=== PATIENT | male | born 1970 | race Caucasian/White ===

== ENCOUNTER 2018-09-05 05:36 | Inpatient (IN) | payer OTHER ==
[2018-09-05] MEDS ORDERED: VERAPAMIL 5 MG INJ (06:11)
[2018-09-05] MEDS ORDERED: NITROGLYCERIN (IC) 100 MCG/ML INJ (06:14)
[2018-09-05] MEDS: THROMBIN (BOVINE) 5,000 UNIT VIAL TP (06:55)
[2018-09-05] MEDS: CEFAZOLIN 1 GM INJ (06:55)
[2018-09-05] MEDS: GELATIN SIZE 100 SPONGE (06:55)
[2018-09-05] MEDS: BUPIVACAINE 0.5%/EPI (SDV) 30 ML INJ ×2 (06:55→10:53)
[2018-09-05] MEDS ORDERED: HEPARIN 1000 UNITS/ML 10 ML INJ (06:56)
[2018-09-05] MEDS ORDERED: PROPOFOL 200 MG INJ (07:00)
[2018-09-05] MEDS ORDERED: MIDAZOLAM 1 MG/ML 2 ML INJ (07:26)
[2018-09-05] MEDS ORDERED: ONDANSETRON 4 MG INJ (07:26)
[2018-09-05] MEDS ORDERED: METOCLOPRAMIDE 10 MG INJ (07:26)
[2018-09-05] MEDS ORDERED: ROCURONIUM 50 MG INJ ×2 (07:26→08:15)
[2018-09-05] MEDS ORDERED: PROPOFOL 20 ML (07:26)
[2018-09-05] MEDS ORDERED: DIPHENHYDRAMINE 50 MG INJ IV (07:30)
[2018-09-05] MEDS ORDERED: HYDROmorphONE 1 MG/5 ML IV SYRINGE IV ×5 (07:30→13:30)
[2018-09-05] MEDS ORDERED: MEPERIDINE 25 MG INJ IV (07:30)
[2018-09-05] MEDS ORDERED: FENTAnyl 50 MCG/ML VIAL IV ×2 (07:30)
[2018-09-05] MEDS ORDERED: FENTAnyl 50 MCG/ML VIAL ×2 (07:33→11:00)
[2018-09-05] MEDS ORDERED: DEXAMETHASONE 4 MG/ML 5 ML INJ (07:46)
[2018-09-05] MEDS ORDERED: CEFAZOLIN 1 GM INJ (08:02)
[2018-09-05] MEDS ORDERED: HYDROmorphONE 2 MG/ML SYG (08:28)
[2018-09-05] MEDS ORDERED: ROPIVACAINE 0.5 % 30 ML VIAL (09:33)
[2018-09-05] MEDS ORDERED: SUCCINYLCHOLINE CHLORIDE 100 MG/5 ML SYG IV (12:45)
[2018-09-05] MEDS ORDERED: NALOXONE (0.4 MG/ML) INJ IV (13:00)
[2018-09-05] MEDS ORDERED: HYDROCODONE/APAP (5/325) TAB PO (13:00)
[2018-09-05] MEDS ORDERED: ONDANSETRON 4 MG INJ IV ×2 (13:00→13:30)
[2018-09-05] MEDS ORDERED: ACETAMINOPHEN 325 MG TAB PO (13:00)
[2018-09-05] MEDS ORDERED: PROCHLORPERAZINE 10 MG TAB PO (13:00)
[2018-09-05] MEDS ORDERED: NACL 0.9% 3 ML SYG IV (13:00)
[2018-09-05] MEDS ORDERED: AL HYDROX/MG HYDROX/SIMETH 30 ML CUP PO (13:00)
[2018-09-05] MEDS: FENTAnyl 50 MCG/ML VIAL IV (13:10)
[2018-09-05] MEDS: ONDANSETRON 4 MG INJ IV (13:10)
[2018-09-05] MEDS: HYDROmorphONE 0.2 MG/ML PCA IV ×2 (13:18→19:45)
[2018-09-05] MEDS ORDERED: KETOROLAC 15 MG INJ IV (13:30)
[2018-09-05] MEDS: CEFAZOLIN 1 GM/50 ML (PMX) 50 ML IVPB ×2 (17:53→23:48)
[2018-09-05] MEDS ORDERED: ZOLPIDEM 5 MG TAB PO (18:30)
[2018-09-05] MEDS ORDERED: ACET/BUTAL/CAFF TAB PO (18:30)
[2018-09-05] MEDS ORDERED: SUMATRIPTAN 50 MG TAB PO (18:30)
[2018-09-05] MEDS: MIRTAZAPINE 15 MG TAB PO (20:53)
[2018-09-05] MEDS: traZODone 50 MG TAB PO (20:53)
[2018-09-06] MEDS: CEFAZOLIN 1 GM/50 ML (PMX) 50 ML IVPB ×2 (05:21→11:49)
[2018-09-06 05:25] LABS: HEMATOCRIT 36.9 % (42.0-52.0)
[2018-09-06 06:01] LABS: ANION GAP 8 (5-13); BLOOD UREA NITROGEN 13 mg/dl (7-20); CALCIUM 9.3 mg/dl (8.4-10.2); CARBON DIOXIDE 30 mmol/L (21-31); CHLORIDE 103 mmol/L (97-110); CREATININE 0.85 mg/dl (0.61-1.24); Estimated GFR > 60 mL/min (>60); GLUCOSE 128 mg/dl (70-220); POTASSIUM 4.4 mmol/L (3.5-5.1); SODIUM 141 mmol/L (135-144)
[2018-09-06] MEDS: HYDROmorphONE 0.2 MG/ML PCA IV (06:12)
[2018-09-06] MEDS: DOCUSATE SODIUM 100 MG CAP PO ×2 (08:21→20:43)
[2018-09-06] MEDS: DULOXETINE 30 MG CAP DR PO (08:21)
[2018-09-06] MEDS: HYDROCODONE/APAP (5/325) TAB PO ×3 (13:13→22:05)
[2018-09-06] MEDS: HYDROmorphONE 0.5 MG/0.5 ML SYG IV ×2 (18:47→23:44)
[2018-09-06] MEDS: traZODone 50 MG TAB PO (20:43)
[2018-09-06] MEDS: MIRTAZAPINE 15 MG TAB PO (20:43)
[2018-09-07] MEDS: HYDROCODONE/APAP (5/325) TAB PO ×5 (02:13→18:42)
[2018-09-07 04:59] LABS: ADD MAN DIFF? NO
[2018-09-07 05:02] LABS: BASOPHILS % 0.4 % (0.0-2.0); EOSINOPHILS % 0.4 % (0.0-7.0); HEMATOCRIT 37.1 % (42.0-52.0); HEMOGLOBIN 11.9 g/dl (14.0-18.0); LYMPHOCYTES # 2.1 10^3/ul (0.8-2.9); LYMPHOCYTES % 25.3 % (15.0-51.0); MEAN CORPUSCULAR HEMOGLOBIN 27.5 pg (29.0-33.0); MEAN CORPUSCULAR HGB CONC 32.1 g/dl (32.0-37.0); MEAN CORPUSCULAR VOLUME 85.9 fl (82.0-101.0); MEAN PLATELET VOLUME 9.8 fl (7.4-10.4); MONOCYTE # 0.8 10^3/ul (0.3-0.9); MONOCYTES % 9.9 % (0.0-11.0); NEUTROPHIL # 5.2 10^3/ul (1.6-7.5); NEUTROPHILS % 63.8 % (39.0-77.0); PLATELET COUNT 308 10^3/UL (140-415); RED BLOOD COUNT 4.32 10^6/ul (4.70-6.10); RED CELL DISTRIBUTION WIDTH 14.6 % (11.5-14.5)
[2018-09-07 05:02] LABS: WHITE BLOOD COUNT 8.2 10^3/ul (4.8-10.8)
[2018-09-07 05:18] LABS: ANION GAP 7 (5-13); BLOOD UREA NITROGEN 13 mg/dl (7-20); CALCIUM 8.8 mg/dl (8.4-10.2); CARBON DIOXIDE 33 mmol/L (21-31); CHLORIDE 99 mmol/L (97-110); CREATININE 0.97 mg/dl (0.61-1.24); Estimated GFR > 60 mL/min (>60); GLUCOSE 112 mg/dl (70-220); MAGNESIUM 1.7 mg/dl (1.7-2.5); PHOSPHORUS 3.7 mg/dl (2.5-4.9); POTASSIUM 4.3 mmol/L (3.5-5.1); SODIUM 139 mmol/L (135-144)
[2018-09-07] MEDS: HYDROmorphONE 0.5 MG/0.5 ML SYG IV ×3 (07:50→21:05)
[2018-09-07] MEDS: DULOXETINE 30 MG CAP DR PO (09:27)
[2018-09-07] MEDS: DOCUSATE SODIUM 100 MG CAP PO ×2 (09:28→21:07)
[2018-09-07] MEDS: traZODone 50 MG TAB PO (21:07)
[2018-09-07] MEDS: MIRTAZAPINE 15 MG TAB PO (21:08)
[2018-09-08] MEDS: HYDROCODONE/APAP (5/325) TAB PO ×3 (00:40→09:31)
[2018-09-08 05:01] LABS: ADD MAN DIFF? NO
[2018-09-08 05:06] LABS: WHITE BLOOD COUNT 8.4 10^3/ul (4.8-10.8)
[2018-09-08 05:06] LABS: BASOPHILS % 0.5 % (0.0-2.0); EOSINOPHILS # 0.1 10^3/ul (0.0-0.5); EOSINOPHILS % 1.4 % (0.0-7.0); HEMATOCRIT 37.7 % (42.0-52.0); HEMOGLOBIN 11.9 g/dl (14.0-18.0); LYMPHOCYTES # 2.7 10^3/ul (0.8-2.9); LYMPHOCYTES % 31.8 % (15.0-51.0); MEAN CORPUSCULAR HGB CONC 31.6 g/dl (32.0-37.0); MEAN CORPUSCULAR VOLUME 85.7 fl (82.0-101.0); MONOCYTE # 0.8 10^3/ul (0.3-0.9); MONOCYTES % 9.3 % (0.0-11.0); NEUTROPHIL # 4.8 10^3/ul (1.6-7.5); NEUTROPHILS % 56.6 % (39.0-77.0); PLATELET COUNT 331 10^3/UL (140-415); RED CELL DISTRIBUTION WIDTH 14.3 % (11.5-14.5)
[2018-09-08 05:24] LABS: ANION GAP 6 (5-13); BLOOD UREA NITROGEN 10 mg/dl (7-20); CALCIUM 8.8 mg/dl (8.4-10.2); CARBON DIOXIDE 33 mmol/L (21-31); CHLORIDE 102 mmol/L (97-110); CREATININE 0.86 mg/dl (0.61-1.24); Estimated GFR > 60 mL/min (>60); GLUCOSE 113 mg/dl (70-220); PHOSPHORUS 3.7 mg/dl (2.5-4.9); SODIUM 141 mmol/L (135-144)
[2018-09-08] MEDS: DOCUSATE SODIUM 100 MG CAP PO (08:26)
[2018-09-08] MEDS: DULOXETINE 30 MG CAP DR PO (08:26)
== END 2018-09-08 13:21 | disposition home or self-care (01) | DRG 454 ==
LOC: REC 05:36 → MS1 09-07 08:02
PROC: 0SG30A0 Fusion of Lumbosacral Joint with Interbody Fusion Device, Anterior Approach, Anterior Column, Open Approach (ICD-10-PCS; principal; 2018-09-05 07:27)
PROC: 0SG30K1 Fusion of Lumbosacral Joint with Nonautologous Tissue Substitute, Posterior Approach, Posterior Column, Open Approach (ICD-10-PCS; 2018-09-05 07:27)
PROC: 0SB40ZZ Excision of Lumbosacral Disc, Open Approach (ICD-10-PCS; 2018-09-05 07:27)
PROC: 3E0U0GB Introduction of Recombinant Bone Morphogenetic Protein into Joints, Open Approach (ICD-10-PCS; 2018-09-05 07:27)
PROC: 4A11X4G Monitoring of Peripheral Nervous Electrical Activity, Intraoperative, External Approach (ICD-10-PCS; 2018-09-05 07:27)
DX: M43.17 Spondylolisthesis, lumbosacral region (principal); K56.7 Ileus, unspecified; M48.07 Spinal stenosis, lumbosacral region; M54.10 Radiculopathy, site unspecified; E66.9 Obesity, unspecified; F39 Unspecified mood [affective] disorder; Z68.34 Body mass index [BMI] 34.0-34.9, adult
CPT/HCPCS: 72110; 80048; 83735; 84100; 85014; 85018; 85025; 86850; 86900; 86901; 86920; 87086; 88304; 97110; 97116; 97163; 97530